=== PATIENT | female | born 1940 | race Caucasian/White ===

== ENCOUNTER 2020-03-11 14:18 | Outpatient (CLI) | payer MEDICARE, MEDICAID, SELFPAY | END 2020-03-11 14:19 | disposition home or self-care (01) | LOC: ANHAUDIO 14:20 | PROVIDERS: Visit Provider Family Medicine | DX: H91.90 Unspecified hearing loss, unspecified ear (principal) | CPT/HCPCS: 99199 ==

== ENCOUNTER 2020-06-10 12:57 | Outpatient (CLI) | payer MEDICARE, MEDICAID, SELFPAY | END 2020-06-10 12:58 | disposition home or self-care (01) | PROVIDERS: PCP Family Medicine; Visit Provider Family Medicine | DX: H90.3 Sensorineural hearing loss, bilateral (principal) | CPT/HCPCS: 92557; 92567 ==

== ENCOUNTER 2020-07-16 13:10 | Outpatient (RCR) | payer MEDICAID, SELFPAY | END 2020-07-16 23:59 | disposition home or self-care (01) | LOC: ANHAUDIO 13:10 | PROVIDERS: PCP Family Medicine; Visit Provider Family Medicine | DX: Z46.1 Encounter for fitting and adjustment of hearing aid (principal) | CPT/HCPCS: V5160; V5261 ==

== ENCOUNTER 2020-11-04 17:44 | Emergency (ER) | payer MEDICARE, MEDICAID, SELFPAY ==
--- NOTE | ~2020-11-04 | XR_ITS ---
XR lumbar spine 2-3V DATE: 11/04/2020 18:27 INDICATION: Twisted back 2 weeks ago. Back pain. TECHNIQUE: AP, lateral, coned lateral lumbosacral views COMPARISON: None FINDINGS: Degenerative spurring of the lower thoracic spine. Moderate dextroscoliosis and prominent m ultilevel degenerative disease of the lumbar spine. There is degenerative change at the apophyseal joints with associated grade 1 anterolisthesis at L4-5 . Postoperative changes of the abdomen including jv along the anterior right mid to upper abdomina l wall and surgical clips in the gallbladder fossa consistent with cholecystectomy. IMPRESSION: Dextroscoliosis of the lumbar spine Osteopenia Multilevel degenerative disc disease of the lumbar spine Reviewed, dictated and finalized at location A.
--- NOTE | ~2020-11-04 | XR_ITS ---
XR hip LT min 2V DATE: 11/04/2020 18:26 INDICATION: Twisted left hip 2 weeks ago. Pain. TECHNIQUE: AP and lateral views COMPARISON: None FINDINGS: No fracture or dislocation, avascular necrosis or bone destruction. There is mild left hip osteoarthritis. The pubic symphysis and sacroiliac and right sacral iliac joints appear intact. There is a prominent amount of fecal material in the rectosigmoid area. IMPRESSION: Mild left hip osteoarthritis Reviewed, dictated and finalized at location A.
[2020-11-04 17:48] VITALS: BP 126/83; PULSE 68; RESP 18; TEMP 37.3; O2SAT 99
--- NOTE | 2020-11-04 17:54 | ED.BACK ---
HPI - Back Pain/Injury General Chief Complaint: Back Pain/Injury Stated Complaint: Back pain Time Seen by Provider: 11/04/20 17:55 Source: patient and RN notes reviewed History of Present Illness HPI Narrative: Patient is an 80-year-old female who presents the urgent care with a family friend with complaints of low back pain. Patient states that it started 2 weeks ago after twisting wrong and slamming a dresser drawer into her left hip/left lower back. Patient takes chronic pain medication for fibromyalgia and osteoporosis. Patient had a prescription of OxyContin sent to her pharmacy today and states that she did take 1 prior to arrival. Patient also had Percocet filled on October 15. When questioning the patient about her pain medications she stated that is irrelevant to why she is here this evening . Patient believes she may have fractured something in her back due to the increased pain. No other acute complaints. No acute distress noted. Patient is moving about without any difficulties. Patient aware of plan of care. Some parts of this dictation were generated by voice recognition software and may contain typographical and/or grammatical inaccuracies. Related Data Home Medications Medication Instructions Recorded Confirmed bupropion HCl [Wellbutrin XL] 150 mg PO DAILY 11/04/20 11/04/20 carvedilol phosphate [Coreg CR] 10 mg PO DAILY 11/04/20 11/04/20 cyclobenzaprine 5 mg PO TID 11/04/20 11/04/20 ipratropium bromide 21 mcg INTRANASAL DIRECTED PRN 11/04/20 11/04/20 isosorbide mononitrate 30 mg PO QAM 11/04/20 11/04/20 nitrofurantoin macrocrystal 100 mg PO HS 11/04/20 11/04/20 oxycodone [OxyContin] 20 mg PO BID 11/04/20 11/04/20 oxycodone-acetaminophen [Percocet] 10 tablet PO DIRECTED PRN 11/04/20 11/04/20 Allergies Allergy/AdvReac Type Severity Reaction Status Date / Time Tetanus Vaccines and Toxoid Allergy Severe Anaphylactic Verified 11/18/10 11:51 Shock Tricyclic Compounds Allergy Anaphylactic Verified 11/18/10 11:51 Shock Review of Systems Review of Systems: Narrative: CONSTITUTIONAL: Denies fever, chills, or sweats. EYES: Denies visual changes, redness, or discharge. ENT: Denies rhinorrhea, congestion, sore throat, or otalgia. CARDIOVASCULAR: Denies chest pain, palpitations, or edema. RESPIRATORY: Denies cough or dyspnea. GASTROINTESTINAL: Denies abdominal pain, nausea, vomiting, or diarrhea. GENITOURINARY: Denies dysuria or hematuria. SKIN: Denies rash or itching. MUSCULOSKELETAL: Reports of left hip and left low back pain NEUROLOGIC: Denies headache, numbness, or weakness. All other systems reviewed are negative, except as documented in HPI. PMFSH Social History Social History Gender identity (if verbalized by the patient): Female Comments At the time of my signature, I reviewed and agree with the nursing past medical, surgical, social, and family history. There is no relevant family history pertinent to the patient complaint. Exam Narrative: Exam Narrative: GENERAL: This is a well-nourished, well-developed patient, in no apparent distress. HEAD: normocephalic, atraumatic. EYES: PERRL. Sclera clear/white. Vision is grossly intact. EARS: External ears normal NOSE: External nose normal with no obvious nasal discharge, nares without redness, no rhinorrhea. THROAT: Mucous membranes moist NECK: Neck supple CARDIOVASCULAR: Regular rate and rhythm without murmurs, gallops, or rubs. RESPIRATORY: Clear to auscultation. Breath sounds equal bilaterally. No wheezes, rales, or rhonchi. SKIN: warm, intact with no suspicious lesions or rash, good texture and turgor. NEURO: awake, alert, and oriented to person, place and time. There were no obvious focal neurologic abnormalities. EXTREMITIES: No clubbing, cyanosis, or edema. No joint tenderness, effusion, or edema noted. No calf tenderness. Negative Homans sign bilaterally. BACK: Nontender without deformity or crepitance. No flank tenderness. Course
[2020-11-04 18:06] VITALS: BP 126/83; PULSE 68; RESP 18; TEMP 37.3; O2SAT 99
== END 2020-11-04 18:51 | disposition home or self-care (01) ==
PROVIDERS: Emergency Provider Nurse Practitioner Family; PCP Family Medicine
DX: M54.5 Low back pain (principal); M79.7 Fibromyalgia; M81.0 Age-related osteoporosis without current pathological fracture; E78.00 Pure hypercholesterolemia, unspecified; Z95.5 Presence of coronary angioplasty implant and graft; I50.9 Heart failure, unspecified; J45.909 Unspecified asthma, uncomplicated; K21.9 Gastro-esophageal reflux disease without esophagitis; M19.90 Unspecified osteoarthritis, unspecified site; E03.9 Hypothyroidism, unspecified; F41.9 Anxiety disorder, unspecified; F32.9 Major depressive disorder, single episode, unspecified
CPT/HCPCS: 72100; 73502; 99214; G0463

== ENCOUNTER 2021-03-28 15:01 | Outpatient (RCR) | payer MEDICARE, MEDICAID, SELFPAY | END 2021-03-28 23:59 | disposition home or self-care (01) | LOC: ANHAUDIO 15:01 | PROVIDERS: PCP Family Medicine; Visit Provider Family Medicine | DX: Z46.1 Encounter for fitting and adjustment of hearing aid (principal) | CPT/HCPCS: 99199 ==

== ENCOUNTER 2021-11-11 12:00 | Outpatient (RCR) | payer MEDICARE, MEDICAID, SELFPAY | END 2021-11-11 23:59 | disposition home or self-care (01) | LOC: ANHAUDIO 12:00 | PROVIDERS: PCP Family Medicine; Visit Provider Family Medicine | DX: Z46.1 Encounter for fitting and adjustment of hearing aid (principal) | CPT/HCPCS: 99199; V5014 ==

== ENCOUNTER 2022-01-31 13:00 | Outpatient (RCR) | payer MEDICARE, MEDICAID, SELFPAY | END 2022-01-31 23:59 | disposition home or self-care (01) | LOC: ANHAUDIO 13:00 | PROVIDERS: PCP Family Medicine; Visit Provider Family Medicine | DX: Z46.1 Encounter for fitting and adjustment of hearing aid (principal) | CPT/HCPCS: 99199; V5264 ==